=== PATIENT | female | born 1980 | race African-American/Black ===

== ENCOUNTER 2019-09-09 14:45 | Emergency (ER) | payer MEDICAID, OTHER ==
[2019-09-09 15:13] VITALS: BP 138/84
== END 2019-09-09 17:25 | disposition home or self-care (01) ==
LOC: ER 14:45
DX: M54.5 Low back pain (principal); K59.00 Constipation, unspecified; J45.909 Unspecified asthma, uncomplicated; Z88.0 Allergy status to penicillin
CPT/HCPCS: 74018; 81002; 81025

== ENCOUNTER 2021-01-11 23:51 | Emergency (ER) | payer MEDICAID ==
[~2021-01-11] VITALS: Ht 170.2 cm; Wt 63.5 kg
[2021-01-12 01:00] VITALS: BP 127/84
== END 2021-01-12 05:12 | disposition home or self-care (01) ==
LOC: ER 23:51
DX: S20.212A Contusion of left front wall of thorax, initial encounter (principal); J45.909 Unspecified asthma, uncomplicated; Z88.0 Allergy status to penicillin; W10.8XXA Fall (on) (from) other stairs and steps, initial encounter; Y93.89 Activity, other specified; Y92.89 Other specified places as the place of occurrence of the external cause; Y99.8 Other external cause status
CPT/HCPCS: 71101

== ENCOUNTER 2023-06-23 20:39 | Emergency (ER) | payer MEDICAID ==
[~2023-06-23] VITALS: Ht 170.2 cm; Wt 77.7 kg
[2023-06-23 21:40] VITALS: BP 136/80; PULSE 100; RESP 17; TEMP 99.2
[2023-06-23 22:26] LABS: Basophils # (auto) 0 10 ^3/uL (0-0.2); Basophils % (auto) 0.9 % (0.0-2.0); Eosinophils # (auto) 0 10 ^3/uL (0-0.8); Eosinophils % (auto) 0.5 % (0.0-7.0); Hemoglobin 12.1 g/dL (12.2-16.2); Lymphocytes # (auto) 1.6 10 ^3/uL (0.4-5.4); Lymphocytes % (auto) 47.3 % (10.0-50.0); Mean Corpuscular Hemoglobin 28.7 pg (28.0-32.0); Mean Corpuscular Volume 89.8 fL (80.0-100.0); Monocytes # (auto) 0.5 10 ^3/uL (0-1.3); Monocytes % (auto) 16.1 % (0.0-12.0); Neutrophils # (auto) 1.2 10 ^3/uL (1.6-8.6); Neutrophils % (auto) 35.2 % (37.0-80.0); Nucleated Red Blood Cells % 0.1 %; Red Blood Cells 4.23 10^6/uL (4.0-5.20); Red Cell Distribution Width 17.4 % (11.8-14.3); White Blood Cell 3.4 10^3/uL (4.4-10.8)
[2023-06-23 22:38] LABS: Alanine Aminotransferase 11 U/L (7-40); Albumin 4.6 g/dL (3.2-4.8); Alkaline Phosphatase 48 U/L (46-116); Anion Gap 9 (5-15); Aspartate Aminotransferase 22 U/L (13-40); BUN/Creatinine Ratio 4.6 (10.0-20.0); Bilirubin, Total 0.3 mg/dL (0.2-1.0); Blood Urea Nitrogen 5 mg/dL (9-23); Calcium 8.8 mg/dL (8.7-10.4); Carbon Dioxide 24 mmol/L (20-30); Chloride 101 mmol/L (98-107); Glucose 97 mg/dL (74-106); Potassium 3.3 mmol/L (3.5-5.1); Sodium 134 mmol/L (136-145)
[2023-06-23 22:39] LABS: Total Protein 8.2 g/dL (5.7-8.2)
[2023-06-23 23:34] LABS: COVID19 ANTIGEN SOFIA FIA NEGATIVE (NEGATIVE); Rapid Influenza A Negative (Negative); Rapid Influenza B Negative (Negative)
[2023-06-23] MEDS ORDERED: MONT-8 PO (23:43)
[2023-06-23] MEDS ORDERED: AZITTAB PO (23:43)
[2023-06-23] MEDS ORDERED: PROM1SOL4 PO (23:43)
[2023-06-24 00:17] VITALS: O2SAT 97
== END 2023-06-24 00:30 | disposition home or self-care (01) ==
LOC: ER 20:39
DX: B34.9 Viral infection, unspecified (principal); J45.909 Unspecified asthma, uncomplicated; Z20.822 Contact with and (suspected) exposure to COVID-19
CPT/HCPCS: 36415; 80053; 85025; 87426; 87804

== ENCOUNTER 2024-09-08 15:19 | Emergency (ER) | payer MEDICAID ==
[~2024-09-08] VITALS: Ht 170.2 cm; Wt 80.8 kg
[~2024-09-08 15:19] MED LIST: AZITTAB PO; MONT-8 PO; PROM1SOL4 PO
[2024-09-08 17:01] VITALS: BP 137/89; PULSE 104; RESP 18; TEMP 99.6; O2SAT 98
[2024-09-08] MEDS: methylPREDNISolone SOD SUCC 125 MG/2 ML VL IM ONE (17:23)
[2024-09-08] MEDS: KETOROLAC TROMETH 60MG/2ML VIAL IM ONE (17:24)
[2024-09-08] MEDS ORDERED: IBUP-1454 PO (17:30)
[2024-09-08] MEDS ORDERED: AZIT-43 PO (17:30)
[2024-09-08] MEDS ORDERED: PRED20TA2 PO (17:30)
[2024-09-08] MEDS ORDERED: MAGIC MT (17:30)
--- NOTE | 2024-09-08 17:30 | ED.PDOC ---
Eye-HPI HPI Comments left strep throat Chief Complaint: Flu like Time Seen by MD: 16:54 Primary Care Provider: DENIES Allergies: Coded Allergies: Penicillins (Verified Allergy, Severe, 09/09/19) Morphine (Verified Allergy, Unknown, 09/08/24) Home Meds Active Scripts Montelukast Sodium (MONTELUKAST SODIUM) 10 Mg Tab, 1 TAB PO DAILY, #30 TAB 5 Refills Prov:CARLEY GLASER CLAIM ATTORNEY 06/23/23 Promethazine-Dm (Promethazine Dm 6.25-15 mg/5Ml) 1 Nishi Nishi, 10 ML PO TID PRN, #240 ML Prov:CARLEY GLASER CLAIM ATTORNEY 06/23/23 Azithromycin (Zithromax Z-Tyler) 250 Mg Tab, 250 MG PO DAILY for 5 Days, #5 TAB Prov:CARLEY GLASER 06/23/23 Mode of Arrival: Ambulatory Family History Family History: Reviewed,noncontributory to illness Social History Smoking: Non-Smoker Alcohol: Denies ETOH Use Drugs: Denies Drug Use Lives In: Home X-Ray, Labs, Meds, VS Vital Signs Date Time Temp Pulse Resp B/P (MAP) Pulse Ox O2 Delivery O2 Flow Rate FiO2 09/08/24 17:01 99.6 104 18 137/89 (105) 98 99.6 09/08/24 17:01 104 18 98 Room Air 09/08/24 16:04 99.6 104 18 137/89 (105) 98 09/08/24 16:04 18 98 Room Air* 0 21 Current Medications Medications (Trade) Dose Ordered Sig/Noris Route Start Time Stop Time Status Last Admin Ketorolac Tromethamine (Toradol Injection) 60 mg ONCE ONCE IM 09/08/24 17:30 09/08/24 17:31 09/08/24 17:24 Methylprednisolone Sodium Succinate (Solu Medrol) 125 mg ONCE ONCE IM 09/08/24 17:30 09/08/24 17:31 09/08/24 17:23 Departure 1 Departure Time of Disposition: 17:28 Impression: Primary Impression: Tonsillar exudate Disposition: 01 HOME / SELF CARE / HOMELESS Condition: Stable e-Prescriptions Alum & Mag Hydrox-Simethicone (Magic Mouthwash) 80 Ml Ss 80 ML MT TID for 2 Days, #200 ML 0 Refills Prov: EARLENE GAVIRIA NEONATAL INTENSIVE CARE NURSE 09/08/24 Ibuprofen (Ibuprofen) 600 Mg Tab 1 TAB PO TID for 10 Days, #30 TAB 0 Refills Prov: EARLENE GAVIRIA NEONATAL INTENSIVE CARE NURSE 09/08/24 Prednisone (Prednisone) 20 Mg Tab 60 MG PO DAILY for 5 Days, #15 TAB 0 Refills Prov: EARLENE GAVIRIA NEONATAL INTENSIVE CARE NURSE 09/08/24 Azithromycin (Azithromycin) 250 Mg Tab 2 TAB PO DAILY MDD 500 for 5 Days, #10 TAB 0 Refills 2 TABLETS ORALLY ON DAY ONE, THEN 1 TABLET ORALLY DAILY FOR 4 DAYS Prov: EARLENE GAVIRIA NEONATAL INTENSIVE CARE NURSE 09/08/24 EARLENE GAVIRIA NEONATAL INTENSIVE CARE NURSE Sep 08, 2024 17:30
== END 2024-09-08 17:37 | disposition home or self-care (01) ==
LOC: ER 15:19
DX: J03.90 Acute tonsillitis, unspecified (principal); Z88.0 Allergy status to penicillin; Z88.6 Allergy status to analgesic agent; Z79.899 Other long term (current) drug therapy
CPT/HCPCS: 96372; 99284; J1885; J2919